=== PATIENT | female | born 1940 | race Caucasian/White ===

== ENCOUNTER 2024-04-23 13:54 | Emergency (ER) | payer MEDICARE, OTHER, SELFPAY ==
--- NOTE | ~2024-04-23 | XR_ITS ---
CLINICAL HISTORY: fall 4 view left shoulder Comparison: None Findings: No fractures or dislocations. Mild degenerative change of the AC joint. No erosions. No radiopaque foreign body. IMPRESSION: 1. No acute findings This document has been electronically signed by: Glenroy Whitmore MD on 04/23/2024 15:38:59
--- NOTE | ~2024-04-23 | CT_ITS ---
CLINICAL HISTORY: fall CT abdomen and pelvis without contrast Comparison: None Findings: Limited evaluation without contrast. No consolidation or effusion. Unremarkable gallbladder and solid organs. No urolithiasis. No bowel obstruction, pneumoperitoneum, or pneumatosis. Atherosclerosis calcification of the abdominal aorta. Evaluation of the pelvis is limited by the artifact from the bilateral hip prosthesis. Bilateral total hip replacement. Scoliosis and degenerative changes of the lumbar spine. IMPRESSION: No noncontrast CT evidence of acute traumatic injury of the abdomen and pelvis. This document has been electronically signed by: Glenroy Whitmore MD on 04/23/2024 17:12:27
--- NOTE | ~2024-04-23 | CT_ITS ---
CLINICAL HISTORY: fall CT maxillofacial without contrast Comparison: None Findings: No acute fractures. Temporomandibular joints are intact. Opacification of the left sphenoid sinus. Orbital contents within normal limits. Visualized intracranial contents are within normal limits. No foreign bodies. Soft tissue edema of the left face with a hematoma. IMPRESSION: No evidence of acute facial bone fracture. This document has been electronically signed by: Glenroy Whitmore MD on 04/23/2024 16:54:52
--- NOTE | ~2024-04-23 | CT_ITS ---
CLINICAL HISTORY: Fall. rib fractures CT chest without contrast Comparison: None Findings: The heart size is normal. Atherosclerosis calcification of the coronary artery. Ectasia of the ascending aorta. The visualized thyroid and mediastinum are unremarkable. 1.2 x 1.3 cm nodular density of the left breast series 38, image 24. Calcified granuloma and micro nodules. The upper abdomen is unremarkable. No acute fractures. IMPRESSION: No evidence of acute rib fracture. Nodular density of the left breast could represent a hematoma. Imaging follow-up is recommended to confirm resolution and exclude a mass. This document has been electronically signed by: Glenroy Whitmore MD on 04/23/2024 17:05:09
--- NOTE | ~2024-04-23 | CT_ITS ---
CLINICAL HISTORY: fall CT cervical spine without contrast Comparison: None Findings: Normal vertebral body alignment. Multilevel degenerative changes of the cervical spine. There is grade 1 retrolisthesis of C4 on C5. No acute fractures or dislocations. Visualized intracranial contents are unremarkable. No cervical fluid collections or masses. Lung apices are clear. IMPRESSION: No acute findings. This document has been electronically signed by: Glenroy Whitmore MD on 04/23/2024 16:44:49
--- NOTE | ~2024-04-23 | CT_ITS ---
CLINICAL HISTORY: Fall CT Brain without contrast Comparison: None FINDINGS: Cortical sulci: There is diffuse prominence of the cortical sulci compatible with age-related atrophy. Ventricles: Normal for age Brain parenchyma: There is patchy lucency throughout the deep white matter indicating chronic microvascular leukomalacia. Extra axial spaces: Normal Posterior Fossa: Normal Extracranial soft tissues: Normal Additional abnormality: None IMPRESSION: Age-related atrophy with chronic microvascular leukomalacia. No hemorrhage, mass effect, or acute findings identified. This document has been electronically signed by: Glenroy Whitmore MD on 04/23/2024 16:36:27
[2024-04-23 14:06] VITALS: BP 163/80; PULSE 73; RESP 16; TEMP 36.8; O2SAT 97; BMI 19.1
--- NOTE | 2024-04-23 14:11 | ED_ITS ---
HPI - General Adult General Chief complaint: Fall Stated complaint: fall Time Seen by Provider: 04/23/24 18:32 Source: patient, RN notes reviewed and old records reviewed Mode of arrival: ambulatory Limitations: no limitations History of Present Illness ED Provider: Karina HPI narrative: 84-year-old female presents for evaluation after a fall. Patient reports that she walks every morning. She reports that she was just walking back onto her property when she tripped over the curb and fell onto her left side. She has significant bruising to the left side of her face and cheek. She reports that she is not on any anticoagulation She does take prednisone 4 mg daily for polymyalgia rheumatica She reports mild discomfort to her left shoulder. Denies any nausea vomiting, dizziness Denies any lightheadedness, blurry vision She has no other complaints or concerns at this time pain Denies any chest pain, back pain Related Data Allergies Allergy/AdvReac Type Severity Reaction Status Date / Time No Known Allergies Allergy Verified 04/23/24 14:08 Review of Systems Constitutional: Constitutional: Denies chills, Denies fever(s) and Denies headache(s) Eyes: Eyes: Denies blurry vision, Denies dry eyes, Denies floaters and Denies irritation ENT: Denies vertigo, Denies headache(s) and Denies hoarseness Cardiovascular: Cardiovascular: Denies chest pain, Denies chest pain at rest and Denies dyspnea Respiratory: Respiratory: Denies cough and Denies dyspnea Gastrointestinal: Gastrointestinal: Denies abdominal pain, Denies nausea and Denies vomiting Musculoskeletal: Musculoskeletal: Denies back pain, Reports arthralgias, Denies joint swelling and Denies limited range of motion Neurologic: Denies vertigo and Denies headache(s) Psychiatric: Psychiatric: Denies anxiety PMFSH Social History Social History Advance Directives: No Advance Directives Information Provided: No Physical Exam ED Vital Signs: Vital Signs - 24 hr 04/23/24 14:06 04/23/24 16:17 04/23/24 18:11 Temperature 98.3 F 97.0 F Pulse Rate 73 68 Respiratory Rate 16 16 16 Blood Pressure 163/80 H 126/76 Pulse Oximetry 97 98 98 Oxygen Delivery Method Room Air Room Air Room Air 04/23/24 19:11 04/23/24 19:18 Temperature 97.8 F 97.8 F Pulse Rate 79 79 Respiratory Rate 18 18 Blood Pressure 138/87 138/87 Pulse Oximetry 97 97 Oxygen Delivery Method Room Air Room Air BMI result Body Mass Index 19.1 Const General: healthy appearing, comfortable, no acute distress, alert and awake Nutritional Appearance: well nourished Orientation/consciousness: patient oriented x3 HENMT Other: Patient has marked left-sided facial ecchymosis. There was a small skin tear/avulsion in the left temporal region. No active bleeding Head: No normocephalic and No atraumatic Eyes Eyelids: Yes eyelids normal Conjunctivae: conjunctivae normal Sclerae: sclerae normal Corneas: corneas normal Pupils: Equal, round and reactive pupils present EOM: EOMs intact bilaterally Neck Neck: Yes full ROM Resp Effort & Inspection: normal respiratory effort, able to speak in complete sentences and not labored Cardio Rate: regular rate Rhythm: regular rhythm GI Inspection: No distended Palpation (GI): Soft to palpation, not firm, nontender, no guarding and not rigid Skin General skin exam: no rashes or lesions noted and elasticity normal Neuro General: patient oriented x3 Cranial nerves: Yes CN's II-XII intact bilaterally, Yes Equal, round and reactive pupils present and Yes Bilaterally intact EOM present Cognition (Neuro): normal cognition Extrem Other: Moving all extremities well without any obvious deformities Course Course Course Narrative: RME: 84-year-old female presents to ED for fall. Patient tripped and fell onto left side of face and left side of shoulder. Patient complaining of left shoulder pain. Physical exam positive for left orbital maxillary ecchymosis with left shoulder ecchymosis. Positive for left lower rib tenderness on palpation. Patient is sent for imaging. Medications Administered Discontinued Medications Generic Name Dose Route Start Last Admin Trade Name Freq PRN Reason Stop Dose Admin Acetaminophen 650 mg 04/23/24 17:00 04/23/24 17:04 Acetaminophen 325 Mg Tablet PO 04/23/24 17:01 650 mg ONCE ONE Administration Medical Decision Making Medical Decision Making MDM Narrative: 84-year-old female presents for evaluation after a fall. She reports tripping over the curb and striking the left side of her body. There was no loss of consciousness. She had a pretty broad workup that including a CT scan of her head, cervical spine, facial bones, chest CT, abdomen and pelvis. There were no acute traumatic injuries noted. She also had a left shoulder x-ray that did not show any traumatic injury. She has good range of motion to left shoulder. There was no syncopal episode, the patient has no chest pain, no dizziness or lightheadedness, her vital signs are stable I do not see any indication for further emergent workup at this time Differential Diagnosis Differential Diagnoses: The differential diagnosis associated with the presentation includes Mechanical fall Facial contusion Skin tear Abrasion Intracranial hemorrhage Cervical fracture Left shoulder dislocation Shoulder fracture Radiology Impression Discussion of test interpretation with radiology: I have reviewed the radiologist's reading. Radiologist Impression: Findings: No acute fractures. Temporomandibular joints are intact. Opacification of the left sphenoid sinus. Orbital contents within normal limits. Visualized intracranial contents are within normal limits. No foreign bodies. Soft tissue edema of the left face with a hematoma. IMPRESSION: No evidence of acute facial bone fracture. This document has been electronically signed by: Glenroy Whitmore MD on 04/23/2024 16:54:52 Findings: The heart size is normal. Atherosclerosis calcification of the coronary artery. Ectasia of the ascending aorta. The visualized thyroid and mediastinum are unremarkable. 1.2 x 1.3 cm nodular density of the left breast series 38, image 24. Calcified granuloma and micro nodules. The upper abdomen is unremarkable. No acute fractures. IMPRESSION: No evidence of acute rib fracture. Nodular density of the left breast could represent a hematoma. Imaging follow-up is recommended to confirm resolution and exclude a mass. This document has been electronically signed by: Glenroy Whitmore MD on 04/23/2024 17:05:09 Findings: Limited evaluation without contrast. No consolidation or effusion. Unremarkable gallbladder and solid organs. No urolithiasis. No bowel obstruction, pneumoperitoneum, or pneumatosis. Atherosclerosis calcification of the abdominal aorta. Evaluation of the pelvis is limited by the artifact from the bilateral hip prosthesis. Bilateral total hip replacement. Scoliosis and degenerative changes of the lumbar spine. IMPRESSION: No noncontrast CT evidence of acute traumatic injury of the abdomen and pelvis. This document has been electronically signed by: Glenroy Whitmore MD on 04/23/2024 17:12:27 Discharge Plan Discharge Clinical Impression: Contusion of face Patient Disposition: Home, Self-Care Instructions: Facial Contusion (ED) Additional Instructions: Your workup in the ER today was reassuring. Your x-ray of the shoulder did not show any fractures. A CT scan of your facial bones, cervical spine, brain, chest and abdomen did not show any traumatic injuries You may apply topical antibiotic to the wound on the left side of your face Interventions: ED Discharge Assessment Last Done: 04/23/24 19:18 Discharge Date/Time: 04/23/24 19:19 Print Language: Sammarinese
[2024-04-23 16:17] VITALS: BP 126/76; PULSE 68; RESP 16; TEMP 36.1; O2SAT 98
[2024-04-23] MEDS: Acetaminophen 325 MG TABLET 650 MG PO (17:04)
--- NOTE | 2024-04-23 17:13 | PC.NURSE ---
patient has 8/10 head pain, patient pupils equal and reactive, alert and oriented x4. medicated per JUN with 650mg tylenol
[2024-04-23 18:11] VITALS: RESP 16; O2SAT 98
[2024-04-23 19:11] VITALS: BP 138/87; PULSE 79; RESP 18; TEMP 36.6; O2SAT 97
[2024-04-23 19:18] VITALS: BP 138/87; PULSE 79; RESP 18; TEMP 36.6; O2SAT 97
== END 2024-04-23 19:19 | disposition home or self-care (01) ==
PROVIDERS: Emergency Provider Emergency Medicine Emergency Medical Services; PCP Internal Medicine
DX: S00.83XA Contusion of other part of head, initial encounter (principal); M25.512 Pain in left shoulder; M35.3 Polymyalgia rheumatica; R10.2 Pelvic and perineal pain; M54.2 Cervicalgia; R51.9 Headache, unspecified; R07.89 Other chest pain; W01.0XXA Fall on same level from slipping, tripping and stumbling without subsequent striking against object, initial encounter; Y93.89 Activity, other specified; Y92.480 Sidewalk as the place of occurrence of the external cause; Y99.8 Other external cause status
CPT/HCPCS: 70450; 70486; 71250; 72125; 73030; 74176; 99284

== ENCOUNTER → 2024-04-23 14:10 | Outpatient (BNV) | payer MEDICARE, OTHER, SELFPAY | PROVIDERS: PCP Internal Medicine; Visit Provider Nuclear Medicine | DX: S00.93XA Contusion of unspecified part of head, initial encounter (principal); M25.512 Pain in left shoulder; Z03.89 Encounter for observation for other suspected diseases and conditions ruled out | CPT/HCPCS: 70450; 70486; 71250; 72125; 73030; 74176 ==